=== PATIENT | female | born 1945 | race Caucasian/White ===

== ENCOUNTER 2016-07-07 16:32 | Emergency (ER) | payer OTHER | END 2016-07-07 18:40 | disposition short-term general hospital (02) | LOC: ER 16:32 | DX: S12.191A Other nondisplaced fracture of second cervical vertebra, initial encounter for closed fracture (principal); J44.9 Chronic obstructive pulmonary disease, unspecified; I10 Essential (primary) hypertension; F17.210 Nicotine dependence, cigarettes, uncomplicated; Z90.49 Acquired absence of other specified parts of digestive tract; Z90.710 Acquired absence of both cervix and uterus; Z96.652 Presence of left artificial knee joint; Z79.899 Other long term (current) drug therapy; W17.89XA Other fall from one level to another, initial encounter | CPT/HCPCS: 96374; 96375 ==

== ENCOUNTER 2016-09-12 11:31 | Emergency (ER) | payer OTHER | END 2016-09-12 15:17 | disposition home or self-care (01) | LOC: ER 11:31 | DX: M54.6 Pain in thoracic spine (principal); M54.2 Cervicalgia; M79.602 Pain in left arm; I10 Essential (primary) hypertension; K27.9 Peptic ulcer, site unspecified, unspecified as acute or chronic, without hemorrhage or perforation; Z90.49 Acquired absence of other specified parts of digestive tract; Z90.710 Acquired absence of both cervix and uterus; Z79.899 Other long term (current) drug therapy; Z87.891 Personal history of nicotine dependence | CPT/HCPCS: 96372 ==